=== PATIENT | male | born 1995 | race African-American/Black ===

== ENCOUNTER 2019-01-04 08:55 | Emergency (ER) | payer BC ==
[~2019-01-04] VITALS: Ht 185.4 cm; Wt 99.0 kg
[~2019-01-04 08:55] MED LIST: AMOXICILLIN500 MG PO; BICILLIN L1.2 MU/SYR IM; GARDASIL IM; HAVRIX720 UNI1 IM; IRON325 MG OR; MENACTRA PO; NO
[2019-01-04] MEDS ORDERED: LISINOP/HCTZ1 TA1 PO (09:05)
[2019-01-04 09:51] LABS: HEMATOCRIT 44.2 % (39.0-50.0); HEMOGLOBIN 14.6 g/dl (14.0-18.0); IMMATURE GRANULOCYTES 0.3 % (0.0-5.0); MEAN CELL VOLUME 89.3 fL CALC (80.0-100.0); MEAN CORPUSCULAR HGB 29.5 pG CALC (26.0-32.0); NEUT# 10.05 thou/uL (1.82-7.42); RED BLOOD COUNT 4.95 mill/uL (4.70-6.10); RED CELL DISTRI WIDTH 12.6 % (11.5-15.5)
[2019-01-04] MEDS ORDERED: AMOXICILLIN/PO400 MG PO (10:04)
[2019-01-04] MEDS ORDERED: MEDDOSEPAK PO (10:04)
[2019-01-04 10:05] VITALS: BP 152/88
[2019-01-04 10:10] LABS: ALBUMIN 4.9 g/dL (3.2-5.0); ANION GAP 18 (6-22 (CALC)); BILIRUBIN, TOTAL 0.6 mg/dL (0.0-1.4); BUN 11 mg/dL (9-20); BUN/CREATININE RATIO 14 (12-20 (CALC)); CARBON DIOXIDE 25 mmol/l (22-30); CHLORIDE 104 mmol/l (95-108); CREATININE 0.8 mg/dL (0.7-1.3); GFR > 60 ML/MIN (>=60 (CALC)); GFR FOR AFR.AMER. > 60 ML/MIN (>=60 (CALC)); POTASSIUM 4.4 mmol/l (3.5-5.1); SGOT/AST 27 u/l (17-59); SODIUM 142 mmol/l (137-146); TOTAL PROTEIN 8.6 g/dL (6.3-8.2)
[2019-01-04 10:18] LABS: ALKALINE PHOSPHATASE 92 u/l (38-126)
== END 2019-01-04 10:24 | disposition home or self-care (01) | DRG 153 ==
LOC: ED 08:55
PROVIDERS: Emergency Medicine
DX: J03.90 Acute tonsillitis, unspecified (principal); I10 Essential (primary) hypertension